=== PATIENT | female | born 2000 | race Caucasian/White ===

== ENCOUNTER 2023-05-24 17:23 | Emergency (ER) | payer BC, OTHER ==
[2023-05-24 17:34] VITALS: BP 122/84; PULSE 105; RESP 20; TEMP 96.2; O2SAT 99
[2023-05-24] MEDS ORDERED: TYLENOL 325 MG PO ONE (17:59)
[2023-05-24] MEDS ORDERED: Sodium Chloride 0.9% 1000 ML 1,000 ML IV STA (17:59)
--- NOTE | 2023-05-24 18:30 | ERPHSYRPT ---
- History of Present Illness Time Seen by Provider: 05/24/23 17:35 Source: patient Exam Limitations: no limitations Patient Subjective Stated Complaint: Pt states "I have had a horrible headache since 1030 this morning and it is getting worse." Triage Nursing Assessment: Pt presented alert oriented X 3, skin pwd. PT ambulates with an upright steady gait, able to speak in clear full sentences. Pt resting on the bed holding her head Physician History: Patient is a 22-year-old female with history of migraine headaches and vomiting presents to the emergency department for evaluation of worsening migraine headaches. Patient states the headaches are becoming more frequent and more prolonged. Patient states that she cannot sleep. Patient has seen several doctors and feels that they are missing the diagnosis or are not treating her condition appropriately. Patient is currently 16 weeks . Symptoms are mild to moderate in intensity. No specific worsening or improving factors. Patient voices no other complaints or concerns at this time. Portions of this note were created with voice recognition technology. There may be grammatical, spelling, punctuation or sound alike errors Timing/Duration: week(s) (3 weeks) Quality: aching Head Pain Location: global Severity of Pain-Max: moderate Severity of Pain-Current: mild Recent Head Trauma: no recent headache/trauma Modifying Factors: Improves With: exposure to light Associated Symptoms: nausea/vomiting Previous symptoms: other (Similar however symptoms now are much more intense and frequent) Allergies/Adverse Reactions: No Known Drug Allergies Allergy (Verified 05/24/23 17:34) Home Medications: Vit No.179/Iron/Folic [ Tablet] 1 tab PO DAILY 05/24/23 [History] Hx Tetanus, Diphtheria Vaccination/Date Given: No Hx Influenza Vaccination/Date Given: No Hx Pneumococcal Vaccination/Date Given: No Immunizations Up to Date: No Travel Risk - International Travel Have you traveled outside of the country in past 3 weeks: No - Coronavirus Screening Are you exhibiting any of the following symptoms?: Yes Symptoms: Headaches/Body Aches/Fatigue Close contact with a COVID-19 positive Pt in past 14-21 Days: No - Vaccine Status Have you recieved a Covid-19 vaccination: No - Review of Systems Constitutional: No Symptoms, No Fever, No Chills Eyes: No Symptoms Ears, Nose, & Throat: No Symptoms Respiratory: No Symptoms, No Cough, No Dyspnea Cardiac: No Symptoms, No Chest Pain, No Edema, No Syncope Abdominal/Gastrointestinal: No Symptoms, No Abdominal Pain, No Nausea, No Vomiting, No Diarrhea Genitourinary Symptoms: No Symptoms, No Dysuria Musculoskeletal: No Symptoms, No Back Pain, No Neck Pain Skin: No Symptoms, No Rash Neurological: No Symptoms, No Dizziness, No Focal Weakness, No Sensory Changes Psychological: No Symptoms Endocrine: No Symptoms Hematologic/Lymphatic: No Symptoms Immunological/Allergic: No Symptoms All Other Systems: Reviewed and Negative - Past Medical History Pertinent Past Medical History: No - Past Surgical History Past Surgical History: No - Social History Smoking Status: Never smoker Exposure to second hand smoke: Yes Drug Use: none Patient Lives Alone: No - Female History Hx Last Menstrual Period: 12/14/2022 Hx Now: Yes Gestational Age: 16 weeks 2 - Nursing Vital Signs Nursing Vital Signs: Initial Vital Signs Temperature 96.2 F 05/24/23 17:27 Pulse Rate 105 H 05/24/23 17:27 Respiratory Rate 20 05/24/23 17:27 Blood Pressure 122/84 05/24/23 17:27 O2 Sat by Pulse Oximetry 99 05/24/23 17:27 Pain Scale Pain Intensity 8 - Physical Exam General Appearance: no apparent distress Eye Exam: PERRL/EOMI Ears, Nose, Throat Exam: normal ENT inspection, moist mucous membranes Neck Exam: normal inspection, supple, full range of motion, No meningismus Respiratory Exam: normal breath sounds, lungs clear Cardiovascular Exam: regular rate/rhythm, normal heart sounds, normal peripheral pulses Gastrointestinal/Abdominal Exam: soft, No tenderness, No distention Back Exam: normal inspection, normal range of motion Mental Status Exam: alert, oriented x 3, 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 Exam: normal speech, PERRL, No facial droop Coordination/Gait Exam: normal cerebellar function Motor/Sensory Exam: no motor deficit, no sensory deficit Skin Exam: normal color, warm, dry, No rash Lymphatic Exam: No adenopathy SpO2 Interpretation: normal SpO2: 99 O2 Delivery: Room Air - Course Nursing assessment & vital signs reviewed: Yes Ordered Tests: Active Orders 24 hr Category Date Time Status AMA [Release AMA] OM.NOW Care 05/24/23 18:50 Active IV Insertion STAT Care 05/24/23 17:59 Active CBC W DIFF Stat Lab 05/24/23 17:59 Ordered CMP Stat Lab 05/24/23 17:59 Ordered Medication Summary Generic Name Dose Route Start Last Admin Trade Name Freq PRN Reason Stop Dose Admin Sodium Chloride 1,000 mls @ 999 mls/hr 05/24/23 17:59 Sodium Chloride 0.9% 1000 Ml IV 05/24/23 18:59 .[id number] STA Discontinued Medications Generic Name Dose Route Start Last Admin Trade Name Freq PRN Reason Stop Dose Admin Acetaminophen 975 mg 05/24/23 17:59 Acetaminophen 325 Mg Tablet PO 05/24/23 18:00 STAT ONE - Progress Progress: unchanged Air Movement: good Progress Note: 22-year-old female presents to our ED for evaluation of a headache. Patient currently 16 weeks . Patient has a history of migraine headaches. Patient states her migraines are becoming more frequent and more intense. Patient has seen several doctors prior to coming here for the same. Patient was last prescribed Fioricet. There appears to be concerned because the symptoms are getting worse and there are no answers for why her migraines are worsening. In light of patient's /hypercoagulable state we advised a CT head to assess for cavernous sinus thrombosis. Patient became concerned regarding the radiation exposure. We explained the radiation exposure would be relatively low and for the most part safe in light of the CAT scan being in the head and not in the abdomen near the . Patient contacted her family members to discuss the CAT scan in light of the inherent risks. Patient decided that she did not want the CAT scan and left AMA. Patient is of sound mind. Patient is appropriate to make informed and independent medical decisions. Patient understands that leaving AGAINST MEDICAL ADVICE can result in delayed diagnosis, increased risk of morbidity, mortality, short and long-term disability including . In spite of these risks, patient has decided to leave AGAINST MEDICAL ADVICE. Patient understands that he/she may return to our ED at any point if he or she reconsiders. Patient agrees to follow-up with his or her primary care doctor within 48 hours for reevaluation. Patient voices no other complaints or concerns at this time. We will release patient AGAINST MEDICAL ADVICE per their request. Complexity problem addressed is moderate No critical care time Complexity of data reviewed and analyzed is none. Testing ordered. Management ordered. We advised CT head but patient declined. Risk complication and or risk of morbidity/mortality of patient management is moderate. Patient left AGAINST MEDICAL ADVICE Vital stable. No social determinants of health present impede follow-up 05/24/23 18:54 Blood Culture(s) Obtained: No Antibiotics given: No Counseled pt/family regarding: need for follow-up - Departure Departure Disposition: AMA Clinical Impression: Migraine headache Condition: Stable Critical Care Time: No Referrals: PATSY RIVERA MD [Primary Care Provider] - Follow up/PCP as directed Additional Instructions: Patient left AMA prior to completing the discharge paperwork
== END 2023-05-24 18:55 | disposition left against medical advice (07) ==
LOC: ED 17:23
DX: G43.909 Migraine, unspecified, not intractable, without status migrainosus (principal); Z28.310 Unvaccinated for COVID-19; Z33.1 Pregnant state, incidental
CPT/HCPCS: 99283